=== PATIENT | female | born 1990 | race Caucasian/White ===

== ENCOUNTER 2017-06-08 14:41 | Observation (INO) | payer OTHER ==
[2017-06-08] MEDS ORDERED: Charcoal 50 GM/Sorbitol* 50 GM/240 ML BTL PO ONE (14:57)
[2017-06-08 15:46] LABS: ABS Basophils 0 10^3/ul (0-0.2); ABS Eosinophils 0 10^3/ul (0-0.6); ABS Lymphocytes 1.2 10^3/ul (1.0-4.8); ABS Monocytes 0.4 10^3/ul (0-0.8); ABS Neutrophils 7.4 10^3/ul (1.5-7.7); ABS Nucleated RBC 0 10^3/ul; Eosinophil % 0.5 % (0-6); Hematocrit 44 % (35-47); Hemoglobin 14.7 g/dl (12.0-16.0); Lymphocyte % 13.2 % (25-47); Mean Corpuscular HGB Conc 33 g/dl (31-36); Mean Corpuscular Hemoglobin 31 pg (27-31); Mean Corpuscular Volume 93 fL (80-97); Mean Platelet Volume 8 um3 (7.4-10.4); Nucleated Red Blood Cells % 0.1; Platelet Count 268 10^3/ul (150-450); Red Blood Count 4.74 10^6/ul (4.0-5.4); Red Cell Distribution Width 13 % (10.5-15)
[2017-06-08 15:50] LABS: INR 1.02 (0.77-1.02)
[2017-06-08 16:00] LABS: EGFR Non-African American 98.7 (>60)
[2017-06-08] MEDS ORDERED: Acetaminophen TAB* 325 MG PO PRN (18:21)
--- NOTE | 2017-06-08 19:53 | ED ---
Cayetano Landers Rebecca, scribed for Al Carrillo MD on 06/08/17 at 1500 . Substance Abuse/Use - HPI Summary HPI Summary: Pt is a 26 y/o F BIBA accompanied by 2 corrections officers due to a possible OD of Keppra 500 mg. Pt is prescribed Keppra for seizures and usually has access to her own medications. Pt states she took 10 pills, though EMS report she may have taken up to 34. Unsure of when pills were taken, though principal gifts officer reports she was made aware that "something was not right" this morning at 0600 when she seemed stuporous. staff air tactical officer had conversed regularly with the pt last night during which she was at baseline. Denies taking any other medication. Pt states she took the medication with intent to harm herself. Denies any head trauma. PMHx depression, hepatitis C, IVDA. Had been on antidepressants (one was switched), and has a SHx of tobacco, cocaine, heroin and benzodiazepine use. - History Of Current Complaint Chief Complaint: EDOverdose Stated Complaint: POSSIBLE OVERDOSE OF KEPRA 500 MG Hx Obtained From: Patient, Other: - Corrections officers Ingestion History: Type/Name Of Drug - Keppra, Amount Ingested - Unknown - pt states 10 pills, EMS state may be up to 34 pills Overdose Characteristics: Oral Character: Stuporous Aggravating Factor(s): Other - Intent to harm herself Alleviating Factor(s): Nothing Associated Signs And Symptoms: Other: - NEGATIVE: Head trauma - Allergies/Home Medications Allergies/Adverse Reactions: Allergies Allergy/AdvReac Type Severity Reaction Status Date / Time codeine Allergy Swelling Verified 06/08/17 14:50 Home Medications: Home Medications Mirtazapine TAB* [Remeron TAB*] 15 mg PO BEDTIME 06/08/17 [History Confirmed 02/13] levETIRAcetam TAB* [Keppra TAB*] 500 mg PO BID 06/08/17 [History Confirmed 06/08] PMH/Surg Hx/FS Hx/Imm Hx Previously Healthy: No - Hepatitis C Neurological History: Reports: Hx Seizures Psychiatric History: Reports: Hx Depression - Surgical History Surgery Procedure, Year, and Place: TONSILLECTOMY Infectious Disease History: Yes Infectious Disease History: Denies: Traveled Outside the [place] in Last 30 Days - Family History Known Family History: Positive: Hypertension - Social History Alcohol Use: Occasionally Substance Use Type: Reports: Cocaine, Heroin Smoking Status (MU): Light Every Day Tobacco Smoker Review of Systems Positive: Other - S/p possible Keppra OD; NEGATIVE: Head trauma Positive: Other - Stuporous All Other Systems Reviewed And Are Negative: Yes Physical Exam - Summary Physical Exam Summary: Appearance: Well-appearing, Well-nourished Skin: Warm, Dry, No rash, no track james, no evidence of trauma Eyes: PERRL, EOMI, sclera anicteric, unilateral nystagmus looking leftward ENT: Normal Neck: Supple, nontender Respiratory: Clear to auscultation Cardiovascular: S1, S2, no murmur, no rub, no gallop Abdomen: Soft, nontender, no organomegaly Bowel sounds: Present Musculoskeletal: Normal, Strength/ROM Intact, no edema, pulses symmetrical Neurological: Normal, A&Ox3, cranial nerves II-XII WNL, follows commands, gait not tested, sensation intact to pin and light touch Psychiatric: Reacts slowly, follows commands, seems to understand and respond appropriately but slowly, dressed appropriately, judgment intact Triage Information Reviewed: Yes Vital Signs On Initial Exam: Initial Vitals Temp Pulse Resp BP Pulse Ox 98.2 F 86 16 130/79 100 06/08/17 14:47 06/08/17 14:47 06/08/17 14:47 06/08/17 14:47 06/08/17 14:47 Vital Signs Reviewed: Yes Diagnostics - Vital Signs Vital Signs Temp Pulse Resp BP Pulse Ox 06/08/17 14:47 98.2 F 86 16 130/79 100 - Laboratory Result Diagrams: 06/08/17 15:30 06/08/17 15:30 Lab Statement: Any lab studies that have been ordered have been reviewed, and results considered in the medical decision making process. - EKG 1454 Cardiac Rate: NL - 85 bpm EKG Rhythm: Sinus Rhythm EKG Interpretation: Normal Re-Evaluation - Re-Evaluation First Eval Re-Evaluation Time: 16:01 Change: Improved Comment: Pt is doing well, slightly more awake, taking the activated charcoal Course/Dx - Course Assessment/Plan: Pt is a 26 y/o F BIBA accompanied by 2 corrections officers due to a possible OD of Keppra 500 mg. Pt states she took 10 pills, though EMS report she may have taken up to 34. Unsure of when pills were taken, though principal gifts officer reports she was made aware that "something was not right" this morning at 0600 when she seemed stuporous. Denies taking any other medication. Pt states she took the medication with intent to harm herself. Denies any head trauma. PMHx depression, hepatitis C, IVDA. Discussed care of pt with poison control who advised charcoal and an EKG. EKG reveals no acute findings. Negative salicylates, alcohol and acetaminophen. Discussed care of pt with Dr. Sita Sinha who accepts pt for admission. Allergy noted. - Diagnoses Provider Diagnoses: Overdose on keppra, Suicide attempt, History of intravenous drug abuse, History of hepatitis C - Physician Notifications Discussed Care Of Patient With: Poison control Time Discussed With Above Provider: 14:54 Instructed by Provider To: Other - Recommended EKG and charcoal. Discussed care of pt with Dr. Sita Sinha at 1743 who accepts pt for admission. Discharge - Discharge Plan Condition: Fair Disposition: ADMITTED TO [facility] Referrals: Rosalie Gonzalez [Primary Care Provider] - The documentation as recorded by the Cayetano forrester Rebecca accurately reflects the service I personally performed and the decisions made by me, Al Carrillo MD.
[2017-06-08] MEDS ORDERED: NS 0.9% 1000 ML* 1,000 ML IV ONE (20:17)
[2017-06-08] MEDS: Ondansetron INJ* 2 MG/ML VIAL IV SCH (20:57)
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
[2017-06-09] MEDS: Ondansetron INJ* 2 MG/ML VIAL IV SCH ×4 (00:43→11:23)
[2017-06-09 06:32] LABS: ABS Basophils 0 10^3/ul (0-0.2); ABS Eosinophils 0.1 10^3/ul (0-0.6); ABS Lymphocytes 1.9 10^3/ul (1.0-4.8); ABS Monocytes 0.4 10^3/ul (0-0.8); ABS Neutrophils 5.6 10^3/ul (1.5-7.7); ABS Nucleated RBC 0 10^3/ul; Eosinophil % 1.2 % (0-6); Hematocrit 40 % (35-47); Hemoglobin 13.6 g/dl (12.0-16.0); Lymphocyte % 23.8 % (25-47); Mean Corpuscular HGB Conc 34 g/dl (31-36); Mean Corpuscular Hemoglobin 31 pg (27-31); Mean Corpuscular Volume 92 fL (80-97); Mean Platelet Volume 8 um3 (7.4-10.4); Nucleated Red Blood Cells % 0; Platelet Count 244 10^3/ul (150-450); Red Blood Count 4.33 10^6/ul (4.0-5.4); Red Cell Distribution Width 13 % (10.5-15)
[2017-06-09 06:41] LABS: EGFR Non-African American 105.6 (>60)
[2017-06-09 08:15] VITALS: BP 116/61
--- NOTE | 2017-06-10 06:01 | DS ---
CC: [facility]* DISCHARGE SUMMARY: DATE OF ADMISSION: 06/08/17 DATE OF DISCHARGE: 06/09/17 PRINCIPAL DISCHARGE DIAGNOSIS: Intentional Keppra overdose with suicidal intent. SECONDARY DISCHARGE DIAGNOSES: 1. Seizure disorder. 2. Hepatitis C. 3. Anxiety. 4. Depression. PHYSICAL EXAMINATION AT THE TIME OF DISCHARGE: Temperature 97.9, heart rate 75 , respiratory rate 16, pulse ox 99% on room air, blood pressure 116/61. General : Alert, well appearing, in no distress. HEENT: Pupils 3 mm bilaterally and reactive to light. Extraocular movements intact. Moist mucosa. Facial symmetry. Neck: No cervical adenopathy. No JVP. Chest: Regular rate and rhythm. No murmurs. Lungs: Clear bilaterally. Abdomen: Soft, nontender, nondistended. No guarding or rebound. Extremities: No abrasions, rashes, or edema. Neurologic: Strength 5+ throughout. Sensation intact. Oriented x3 with clear sensorium. HOSPITAL COURSE BY PROBLEM: 1. Keppra overdose with suicidal intent. She was reported to have taken 34 tablets of 500 mg and was found to be drowsy on the morning of admission. She was transferred to the [facility] from [facility] and was given activated charcoal. She had good response to the charcoal, experienced emesis and diarrhea and was monitored on telemetry on the fourth floor. She had no telemetry events. Her labs were stable. Poisoning control center was contacted and recommended monitoring CBC and BMP for hepatic toxicity and bone marrow suppression. Neither was evident on the second day of admission. She was continued on a one-to-one observation and on 06/09/17 will be discharged back to [facility]. I have discussed the case with the nurse at [facility] and she will be monitored continuously on a one-to-one and from [facility] will be immediately transferred to [place] for inpatient psychiatric treatment. 2. Seizure disorder. Keppra was held while she was admitted. I discussed that with poison control center and they recommended resuming it after her symptoms are resolved. She should resume Keppra tomorrow, 06/10/17. 3. Major depressive disorder. Resume home Remeron. 4. Hepatitis C. She has not been treated for this and should have followup. 5. Disposition. Ms. Clemente was discharged to [facility] on 06/09/17 under the supervision of [facility] security officers and direct observation continuously. She is to be transferred to [facility] upon return to [facility] today. FOLLOWUP NEEDED: Please arrange followup for Ms. Clemente with Infectious Diseases for consideration of treatment of hepatitis C. [id number]/[facility] #: [id number] [place]
== END 2017-06-09 13:10 ==
LOC: ED 14:41 → MEDTELE 17:54 → EEVIPCON 17:54
PROVIDERS: ADMIT Internal Medicine; ATTEND Internal Medicine
DX: T42.6X2A Poisoning by other antiepileptic and sedative-hypnotic drugs, intentional self-harm, initial encounter (principal); T14.91XA Suicide attempt, initial encounter; Y92.9 Unspecified place or not applicable; Z86.59 Personal history of other mental and behavioral disorders; Z86.19 Personal history of other infectious and parasitic diseases
CPT/HCPCS: 36415; 80053; 80177; 80320; 80329; 85025; 85610; 93005; 96374; 96375; 99283; A9270-GY; G0378; G0480; J2405